=== PATIENT | male | born 1965 | race Caucasian/White ===

== ENCOUNTER 2018-11-08 12:34 | Emergency (ER) | payer OTHER ==
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
[2018-11-08] MEDS ORDERED: IOPAMIDOL (ISOVUE-300) 100 ML BTL ONE (14:31)
[2018-11-08 15:39] VITALS: BP 149/81
== END 2018-11-08 15:39 | disposition home or self-care (01) ==
DX: S20.219A Contusion of unspecified front wall of thorax, initial encounter (principal); W20.8XXA Other cause of strike by thrown, projected or falling object, initial encounter; Y93.H9 Activity, other involving exterior property and land maintenance, building and construction; Y92.59 Other trade areas as the place of occurrence of the external cause; Y99.0 Civilian activity done for income or pay; F17.210 Nicotine dependence, cigarettes, uncomplicated
CPT/HCPCS: 82435-PO; 82565-PO; 82947-PO; 84132-PO; 84295-PO; 84520-PO; 85014-ER; Q9967